=== PATIENT | male | born 1950 | race Asian ===

== ENCOUNTER → 2024-01-31 10:29 | Outpatient (REF) | payer OTHER, SELFPAY | LOC: MRI 3T 10:29 | PROVIDERS: ATTENDING PHYSICIAN Specialist; FAMILY PHYSICIAN Family Medicine | DX: R97.20 Elevated prostate specific antigen [PSA] (principal) | CPT/HCPCS: 72197; A9575 ==

== ENCOUNTER 2024-03-17 06:15 | Day surgery (SDC) | payer OTHER, SELFPAY ==
[2024-03-14 09:41] VITALS: BMI 24.8
[2024-03-14 10:06] LABS: Hematocrit 40.3 % (39.0-52.0); Hemoglobin 13.8 g/dL (13.0-18.0); Mean Corp Hgb Conc. 34.2 g/dL (33.0-37.0); Mean Corpuscular Hgb 29.4 pg (27.0-31.0); Mean Corpuscular Volume 85.7 fL (80.0-94.0); Mean Platelet Volume 8.8 fL (7.4-10.4); Platelet Count 281 10^3/uL (130-400); Red Cell Dist. Width 12.1 % (11.5-14.5)
[2024-03-14 10:13] LABS: Urine Albumin Negative (Neg - Trace); Urine Bilirubin Negative (Negative); Urine Character Clear (Clear); Urine Color Yellow; Urine Glucose Negative (Negative); Urine Ketone Negative (Negative); Urine Leukocyte Negative (Negative); Urine Nitrite Negative (Negative); Urine Occult Blood Negative (Negative); Urine Urobilinogen Negative (Neg - 1+)
[2024-03-14 10:18] LABS: INR 1.05; PT 13.5 Sec (11.4-14.6)
[2024-03-14 10:19] LABS: APTT 28.9 Sec (23.4-35.0)
[2024-03-14 10:35] LABS: Blood Urea Nitrogen 16 mg/dl (9-20); Calcium 9.9 mg/dl (8.4-10.2); Carbon Dioxide 24 mmol/L (22-30); Chloride 105 mmol/L (98-107); Estimated Creatinine Clearance 70 ml/min; Glucose 105 mg/dl (70-99); Potassium 4.4 mmol/L (3.5-5.1); Sodium 138 mmol/L (135-145); eGFR > 60.00
[2024-03-17] VITALS (12 sets, daily range): BP systolic 111–151; BP diastolic 66–90; BMI 24.8
[2024-03-17] MEDS: NORMOSOL-R 1000 IV (08:19)
--- NOTE | 2024-03-17 12:04 | PTCARENOTE ---
Patient received from PACU in bed; Continuous Bladder Irrigation currently running, urine punch color and free of clots; Patient drowsy but awakes to voice; Call cardona within reach; Bed in lowest position, wheels locked; Assessment ongoing
[2024-03-17] MEDS: COZAAR 100 MG PO (21:14)
[2024-03-17] MEDS: LIPITOR 20 MG PO (21:14)
[2024-03-18 03:37] VITALS: BP 114/64
[2024-03-18 07:00] VITALS: BP 131/74
[2024-03-18 08:18] LABS: Hematocrit 39.4 % (39.0-52.0); Hemoglobin 13.6 g/dL (13.0-18.0)
[2024-03-18 09:03] LABS: Blood Urea Nitrogen 13 mg/dl (9-20); Calcium 9.8 mg/dl (8.4-10.2); Carbon Dioxide 21 mmol/L (22-30); Chloride 105 mmol/L (98-107); Estimated Creatinine Clearance 70 ml/min; Glucose 130 mg/dl (70-99); Potassium 4.2 mmol/L (3.5-5.1); Sodium 139 mmol/L (135-145); eGFR > 60.00
[2024-03-18] MEDS: PROSCAR 5 MG PO (09:29)
[2024-03-18] MEDS: NORVASC 5 MG PO (09:29)
[2024-03-18] MEDS: FLOMAX 0.400000000000000022 MG PO (09:30)
--- NOTE | 2024-03-18 10:25 | W.DS.TRANS ---
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
-
Discharge Instructions:
Sleep Apnea Risk Intermediate
Discharge Diagnosis/Procedures Prostate Enlargement with Voiding Dysfunction s/
p Transuretheral Resection of the Prostate
Diet No restrictions
Activity No strenuous activity
Driving Restrictions As prior to admission
Bathing Restrictions None
Instructions:
Stand-Alone Forms:
Changes to Home Medications: No
Discharge Medications:
DC Medications w/original date entered in [place]
L.acidophilus-B.animalis-B.bifidum 25 billion cell-FOS 100 mg capsule (Probiotic Complex) 1 cap PO DAILY 03/16/24
amlodipine 5 mg tablet 5 mg PO DAILY Blood Pressure 03/16/24
atorvastatin 20 mg tablet 20 mg PO HS High Cholesterol 03/16/24
cholecalciferol (vitamin D3) 50 mcg (2,000 unit) tablet (Vitamin D3) 50 mcg PO DAILY Supplement 03/16/24
finasteride 5 mg tablet 5 mg PO DAILY Urinary Issue 03/16/24
losartan 100 mg tablet 100 mg PO HS Blood Pressure 03/16/24
multivitamin 1 tab PO DAILY Supplement 03/16/24
omega 6-hlk-jjg-fish oil 1,000 mg (120 mg-180 mg) capsule (Fish Oil) 1 cap PO DAILY 03/16/24
tamsulosin 0.4 mg capsule 0.4 mg PO DAILY Urinary Issue 03/16/24
methenam 118 mg-m.blue 10 mg-s.phos 40.8 mg-p.salic 36 mg-hyos capsule (Uro-MP) 1 tab PO QID urinary tract irritation #30 caps 03/17/24
Home Medication Changes
Pending Results: No
[2024-03-18 11:17] VITALS: BP 130/78
--- NOTE | 2024-03-18 12:10 | CM ---
Initial assessment completed with patient and daughter. Patient speaks little [place]. 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
hospitalizations. Pharmacy is [facility] in [place] on [address] and PCP is Dr. Mellissa Correa. Anticipate home with no needs.
--- NOTE | 2024-03-18 12:14 | CM ---
Patient has been medically cleared for discharge to home with no additional skilled services. Daughter will transport home.
== END 2024-03-18 11:35 | disposition home or self-care (01) ==
LOC: SDS 06:15
PROVIDERS: ATTENDING PHYSICIAN Specialist; FAMILY PHYSICIAN Family Medicine
DX: N40.1 Benign prostatic hyperplasia with lower urinary tract symptoms (principal); N39.9 Disorder of urinary system, unspecified
CPT/HCPCS: 52601; 88305; 36415; 80048; 81003; 85014; 85018; 85027; 85610; 85730; 93005